=== PATIENT | male | born 1965 | race Caucasian/White ===

== ENCOUNTER 2021-01-26 20:28 | Inpatient (IN) | payer OTHER ==
[~2021-01-26] VITALS: Ht 170.2 cm; Wt 80.3 kg
--- NOTE | 2021-01-26 20:35 | NUR ---
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 PT IS AA/O X4, NO SIGN OF RESPIRATORY DISTRESS, CHEST PAIN WAS RELIEVED NOW, HOOK TO MONITOR ANS SPOX WILL CONT TO MONITOR
--- NOTE | 2021-01-26 20:40 | NUR ---
DR BARNETT AT BEDSIDE EKG IS DONE
[2021-01-26] MEDS ORDERED: NITROGLYCERIN PACKET 1 GM PACKET ONE (20:54)
[2021-01-26] MEDS ORDERED: NITROGLYCERIN PACKET 1 GM PACKET TD ONE (21:00)
[2021-01-26] MEDS ORDERED: ASPIRIN 81 MG TAB.CHEW PO ONE (21:00)
--- NOTE | 2021-01-26 21:05 | NUR ---
LAB AT BEDSIDE, BLOOD DRAW DONE
--- NOTE | 2021-01-26 21:10 | NUR ---
COVID ANTIGEN TEST AND MRSA DONE, SPECIMEN SEND TO THE LAB
[2021-01-26 21:27] LABS: BASOPHILS # (AUTO) 0.1 /CMM (0.0-0.2); BASOPHILS % (AUTO) 0.7 % (0.0-2.0); EOSINOPHILS % (AUTO) 3.2 % (0.0-6.0); HEMATOCRIT 47 % (39-51); HEMOGLOBIN 15.8 g/dL (13.5-17.5); LYMPHOCYTES # (AUTO) 2.2 /CMM (0.8-4.8); MEAN CORPUSCULAR HGB CONC 34 g/dl (31.0-36.0); MEAN CORPUSCULAR VOLUME 91 fL (80-96); MONOCYTES # (AUTO) 0.8 /CMM (0.1-1.30); MONOCYTES % (AUTO) 7.8 % (2.0-12.0); NEUTROPHILS # (AUTO) 6.7 /CMM (1.8-8.9); NEUTROPHILS % (AUTO) 66.3 % (43.0-81.0); PLATELET COUNT (AUTO) 249 /CMM (150-450); RED BLOOD CELL COUNT(AUTO) 5.12 MIL/uL (4.5-6.0); WHITE BLOOD COUNT (AUTO) 10.1 K/uL (4.3-11.0)
[2021-01-26] MEDS ORDERED: ENOXAPARIN SODIUM 80 MG/0.8 ML DISP.SYRIN SQ ONE ×2 (21:30→21:39)
[2021-01-26 21:38] LABS: CALCIUM, SERUM 9.2 mg/dL (8.5-10.1); CREATININE 1.4 mg/dL (0.6-1.3)
--- NOTE | 2021-01-26 22:05 | NUR ---
ICU 259
--- NOTE | 2021-01-26 22:25 | NUR ---
REPORT GIVEN TO CECILIA KRUSE FOR KONSTANTIN
[2021-01-26] MEDS ORDERED: ACETAMINOPHEN 325 MG TABLET PO PRN (23:00)
[2021-01-26] MEDS ORDERED: HYDROCODONE/APAP 5/325MG TABLET PO PRN (23:00)
[2021-01-26] MEDS ORDERED: MAGNESIUM HYDROXIDE 30 ML UDC PO PRN (23:00)
[2021-01-26] MEDS ORDERED: ZOLPIDEM TARTRATE 5 MG TABLET PO PRN (23:00)
[2021-01-26] MEDS ORDERED: MAG HYDROX/AL HYDROX/SIMETH 30 ML UDC PO PRN (23:00)
[2021-01-26] MEDS ORDERED: ONDANSETRON HCL/PF 4 MG/2 ML VIAL IVP PRN (23:00)
[2021-01-26] MEDS ORDERED: Z GUARD REMEDY 2 OZ OINT TP PRN (23:00)
[2021-01-26] MEDS ORDERED: ATORVASTATIN 10 MG TABLET PO SCH (23:00)
--- NOTE | 2021-01-26 23:00 | NUR ---
TRANSFER PT TO ROOM 259 VIA ACLS PROTOCOL BELONGINGS WITH THE PT, PT IS A/O X4 NO SOB NOTED DENIES ANY CHEST PAIN AT THE MOMENT RECEIVING NURSE AT BEDSIDE
[2021-01-26 23:15] VITALS: BP 108/66
[2021-01-26 23:30] VITALS: BP 102/57
[2021-01-26] MEDS: METOPROLOL TARTRATE 25 MG TABLET PO SCH (23:30)
[2021-01-27] VITALS (48 sets, daily range): BP systolic 81–121; BP diastolic 35–74
--- NOTE | 2021-01-27 00:30 | NUR ---
RN NOTES 2304 - ADMITTED A 55Y/O MALE AOX4 VERBALLY RESPONSIVE.. ON ROOM AIR SATURATION 98%. AFEBRILE. NO ACUTE RESPIRATORY DISTRESS. DENIES CHEST PAIN AT THIS TIME. PLACED ON MONITOR REVEALS SR. SKIN IS INTACT. SINUS RHYTHM ON MONITOR. IV SITE ON LAC G 18 AND RH G 20 INTACT AND PATENT. INSTRUCTED TO TO USE CARISA LIGHT FOR ASSISTANCE. KEPT PT CLEAN AND DRY. BED LOCKED AND SECURED WILL CONTINUE T O MONITOR.
[2021-01-27 04:22] LABS: BASOPHILS # (AUTO) 0.1 /CMM (0.0-0.2); BASOPHILS % (AUTO) 0.8 % (0.0-2.0); EOSINOPHILS % (AUTO) 3.4 % (0.0-6.0); HEMATOCRIT 45 % (39-51); LYMPHOCYTES # (AUTO) 3.7 /CMM (0.8-4.8); LYMPHOCYTES % (AUTO) 32.7 % (20.0-44.0); MEAN CORPUSCULAR HGB CONC 34 g/dl (31.0-36.0); MEAN CORPUSCULAR VOLUME 90 fL (80-96); MONOCYTES % (AUTO) 8.7 % (2.0-12.0); NEUTROPHILS # (AUTO) 6.2 /CMM (1.8-8.9); NEUTROPHILS % (AUTO) 54.4 % (43.0-81.0); PLATELET COUNT (AUTO) 231 /CMM (150-450); RED BLOOD CELL COUNT(AUTO) 4.94 MIL/uL (4.5-6.0); WHITE BLOOD COUNT (AUTO) 11.3 K/uL (4.3-11.0)
[2021-01-27 04:37] LABS: CALCIUM, SERUM 8.9 mg/dL (8.5-10.1); PHOSPHORUS 4.3 mg/dL (2.5-4.9); POTASSIUM 3.9 mmol/L (3.5-5.1)
--- NOTE | 2021-01-27 07:00 | NUR ---
RN NOTES PATIENT ASLEEP WELL WITHOUT SOB OR CHEST PAIN. AFEBRILE. VSS. OFFERED TO HAVE O2 BUT PATIENT REFUSED NO SIGNIFICANT CHANGES THROUGHOUT THE SHIFT. REPORTED BY LAB TROPONIN 13.457 ALKA TEAM ASSEMBLER AWARE WITH ORDER EKG, AND CONTINUE TO MONITOR.
--- NOTE | 2021-01-27 07:45 | NUR ---
RN OPENING NOTES RECEIVED PT A&0X4, ON ROOM AIR SATURATING 98%, APPEARS COMFORTABLE AND NOT IN ANY DISTRESS, NO COMPLAINS OF CHEST PAIN OR PAIN ELSEWHERE IN THE BODY AT THIS TIME. PERIPHERAL LINES INTACT WITH NO DRIPS. SAFETY CHECKS IN PLACE. WILL CONTINUE TO MONITOR.
[2021-01-27] MEDS ORDERED: ASPIRIN 81 MG TAB.CHEW PO SCH (09:00)
[2021-01-27] MEDS: METOPROLOL TARTRATE 25 MG TABLET PO SCH ×2 (09:19→21:00)
--- NOTE | 2021-01-27 09:45 | NUR ---
RN NOTE PATIENT ALLOWED TO EAT AND DRINK PER DR HESTER.
[2021-01-27] MEDS: ENOXAPARIN SODIUM 80 MG/0.8 ML DISP.SYRIN SQ SCH ×2 (10:26→21:28)
--- NOTE | 2021-01-27 12:00 | NUR ---
RN NOTE PATIENT NOT EATING OR DRINKING FOR POSSIBLE ANGIO TODAY PER DR HESTER.
[2021-01-27] MEDS ORDERED: NITROGLYCERIN 0.4 MG/TAB BOTTLE SL PRN (12:30)
[2021-01-27] MEDS ORDERED: MORPHINE SULFATE INJ 2 MG/ML DISP.SYRIN IV PRN (12:30)
[2021-01-27] MEDS: ATORVASTATIN 40 MG TABLET PO SCH ×2 (14:30→21:23)
--- NOTE | 2021-01-27 15:00 | NUR ---
RN NOTE LEFT HEART CATH POSSIBLE PCI ON MONDAY PER DR SANTO. MAY HAVE CARDIAC DIET.
--- NOTE | 2021-01-27 15:02 | NUR ---
RN NOTE ATORVASTATIN 80MG PRESCRIBED FOR 1430 AND 2200. PER PHARMACY, DISREGARD 1430 DOSE, AND JUST ADMINISTER THE QHS DOSE.
--- NOTE | 2021-01-27 18:28 | NUR ---
RN CLOSING NOTES PATIENT'S CONDITION REMAINS UNCHANGED. NO COMPLAINS OF PAIN IN THE CHEST OR ELSEWHERE IN THE BODY. SR 63 ON THE TELE MONITOR AT THIS TIME. EMPTIED 1050 MLS IN THE URINAL THIS SHIFT. PAYING VISIT OF THIS WRITING. SAFETY CHECKS IN PLACE. WILL ENDORSE TO NIGHT RN FOR CONTINUITY OF CARE.
--- NOTE | 2021-01-27 19:15 | NUR ---
RN OPENING NOTE REC'D PT IN BED. A/O 4. PT IS COOPERATIVE. AT THIS TIME, PT IS ON ROOM AIR, TOLERATING WELL. NO SOB OR RESP DISTRESS NOTED. PT O2 SATURATION IS 96% ON CARDIAC MONITORING, PRESENTS WITH NORMAL SINUS WITH HEART RATE 67. IV SITE LAC AND RIGHT HAND FLUSHED. PT USES URINAL. SAFETY MEASURES IN PLACE. HOB ELEVATED. SIDE RAILS UP X 2, BED LOCKED IN LOWEST POSITION WITH BED ALARM ON. CALL LIGHT WITHIN REACH. WILL CONT TO MONITOR THROUGHOUT SHIFT.
--- NOTE | 2021-01-27 21:40 | NUR ---
RN NOTE NON ADMIN OF METOPROLOL. BP 92/61 HR 62. NOTIFIED KATE RUCKER WEB SOFTWARE ENGINEER, ORDERS TO HOLD CARRIED OUT. INFORMED PT OF SITUATION. COOPERATIVE.
--- NOTE | 2021-01-27 23:52 | NUR ---
RN NOTE PT ASLEEP, AWAKENS EASILY. PT DENIES PAIN AT THIS TIME. ALL NEEDS ATTENDED. WILL CONT TO MONITOR.
[2021-01-28] VITALS (45 sets, daily range): BP systolic 82–133; BP diastolic 47–83
[2021-01-28 04:14] LABS: BASOPHILS # (AUTO) 0.1 /CMM (0.0-0.2); BASOPHILS % (AUTO) 0.8 % (0.0-2.0); EOSINOPHILS % (AUTO) 3.4 % (0.0-6.0); HEMATOCRIT 46 % (39-51); HEMOGLOBIN 15.3 g/dL (13.5-17.5); LYMPHOCYTES # (AUTO) 3.6 /CMM (0.8-4.8); LYMPHOCYTES % (AUTO) 32.2 % (20.0-44.0); MEAN CORPUSCULAR HGB CONC 33 g/dl (31.0-36.0); MEAN CORPUSCULAR VOLUME 91 fL (80-96); MONOCYTES % (AUTO) 9.3 % (2.0-12.0); NEUTROPHILS # (AUTO) 6.1 /CMM (1.8-8.9); NEUTROPHILS % (AUTO) 54.3 % (43.0-81.0); PLATELET COUNT (AUTO) 238 /CMM (150-450); RED BLOOD CELL COUNT(AUTO) 5.08 MIL/uL (4.5-6.0); WHITE BLOOD COUNT (AUTO) 11.2 K/uL (4.3-11.0)
[2021-01-28 04:39] LABS: ALBUMIN 3.3 g/dL (3.4-5.0); BILIRUBIN,TOTAL 0.5 mg/dL (0.2-1.0); CALCIUM, SERUM 8.8 mg/dL (8.5-10.1); CREATININE 1.1 mg/dL (0.6-1.3); MAGNESIUM 2.1 mg/dL (1.8-2.4); PHOSPHORUS 4.7 mg/dL (2.5-4.9); POTASSIUM 4.1 mmol/L (3.5-5.1); TOTAL PROTEIN, SERUM 6.9 g/dL (6.4-8.2)
[2021-01-28 04:42] LABS: CREATININE, URINE 109.1 MG/DL (30.0-125.0); URINE TOTAL PROTEIN 6.4 mg/dL (0-11.9)
[2021-01-28 04:44] LABS: COLOR,URINE YELLOW (YELLOW)
[2021-01-28 04:45] LABS: BILIRUBIN,URINE NEGATIVE (NEGATIVE); PROTEIN,URINE NEGATIVE (NEGATIVE); UGLUCOSE NEGATIVE (NEGATIVE)
--- NOTE | 2021-01-28 04:45 | NUR ---
RN NOTE URINE COLLECTED AND SENT TO LAB.
[2021-01-28 04:46] LABS: LEUKOCYTE ESTERASE ,URINE NEGATIVE (NEGATIVE); NITRITE, URINE NEGATIVE (NEGATIVE); UROBILINOGEN,URINE 0.2 EU/dL (0.2)
[2021-01-28 04:48] LABS: BACTERIA,URINE None seen /HPF (None Seen); EOSINOPHIL,URINE None Seen; RBC,URINE 0-2 /HPF (0-2); SQUAMOUS EPITHELIAL CELL,UR Few /HPF (None Seen); WBC,URINE 0-2 /HPF (0-3)
--- NOTE | 2021-01-28 06:44 | NUR ---
RN CLOSING NOTE PT REMAINS IN BED, RESTING, EASILY AWAKENS. ON ROOM AIR. TOLERATING WELL. NO SOB NO DISTRESS NOTED. O2 SATURATION 96%. PT REMAINS WITH NSR WITH HEART RATE OF 60. NO SIGNIFICANT CHANGE IN PT CONDITION. PT DENIES PAIN. DENIES CHEST PAIN. SAFETY MEASURES IN PLACE. HOB ELEVATED. BED LOCKED IN LOWEST POSITION. SIDE RAILS UP X3. BED ALARM ON. CALL LIGHT WITHIN REACH. WILL CONT TO MONITOR UNTIL END OF SHIFT AND WILL ENDORSE TO DAY SHIFT NURSE FOR CONTINUATION OF CARE.
--- NOTE | 2021-01-28 07:20 | NUR ---
SOFTWARE IMPLEMENTATION PROJECT MANAGER NOTES RECEIVED PATIENT IN BED RESTING COMFORTABLY IN MODERATE HIGH BACK REST, A/O X4, EASILY AWAKENS. ON ROOM AIR. TOLERATING WELL. NO SOB NO DISTRESS NOTED AT THIS TIME. DENIES CHEST PAIN. O2 SATURATION 98%. ON ARCHITECTURAL TECHNICIAN WITH CURRENT READING OF SR WITH HEART RATE OF 62. SAFETY MEASURES IN PLACE. BED LOCKED IN LOWEST POSITION. SIDE RAILS UP X2. BED ALARM ON. CALL LIGHT WITHIN REACH. WILL CONT TO MONITOR.
[2021-01-28] MEDS: ASPIRIN 81 MG TAB.CHEW PO SCH (08:15)
[2021-01-28] MEDS: METOPROLOL TARTRATE 25 MG TABLET PO SCH ×2 (08:15→21:39)
--- NOTE | 2021-01-28 10:00 | NUR ---
CV RN NOTES SEEN AND EXAMINED BY DEIDRA NAILS AT THIS TIME, PATIENT VSS. WILL CONTINUE TO MONITOR.
[2021-01-28] MEDS: ENOXAPARIN SODIUM 80 MG/0.8 ML DISP.SYRIN SQ SCH ×2 (10:06→21:40)
--- NOTE | 2021-01-28 18:45 | NUR ---
COPYRIGHT EXPERT NOTES PATIENT IN BED RESTING COMFORTABLY IN MODERATE HIGH BACK REST, FAMILY AT BEDSIDE, A/O X4, ON ROOM AIR. TOLERATING WELL. NO SOB/DISTRESS NOTED THROUGHOUT THE SHIFT. DENIES CHEST PAIN. ON HADOOP ARCHITECT WITH CURRENT READING OF SR WITH HEART RATE OF 60'S. SAFETY MEASURES IN PLACE. BED LOCKED IN LOWEST POSITION. SIDE RAILS UP X2. BED ALARM ON. CALL LIGHT WITHIN REACH. WILL ENDORSE TO ELEMENTARY SCHOOL TEACHER NURSE FOR KONSTANTIN.
--- NOTE | 2021-01-28 20:00 | NUR ---
Received patient A/OX4 SR per tele monitoring.Breathing even and unlabored. On RA saturation wnl.Patient denies chest pain or sob.Patient for Heart Catheterization in AM. NPO post MN instructed verbalized understanding.Urinating per urinal.Saline lock LAC and RH intact and patent.Continue monitoring.
[2021-01-28] MEDS: ATORVASTATIN 40 MG TABLET PO SCH (21:38)
[2021-01-29] VITALS (27 sets, daily range): BP systolic 78–129; BP diastolic 38–79
--- NOTE | 2021-01-29 | NUR ---
Patient resting reminded he is NPO from this time till further orders.VS stable. Denies chest pain or sob.
--- NOTE | 2021-01-29 05:45 | NUR ---
Patient ambulated to restroom reported had bm and voided.
--- NOTE | 2021-01-29 06:00 | NUR ---
Patient in bed.AM care done complete lines changed.AM labs drawn.Pre-op check list initiated.Consent for Heart Cath obtained.Remains chest pain free denies sob , nausea or vomiting.Vs remains stable.Kept comfortable.
[2021-01-29] MEDS ORDERED: FENTANYL PF 100MCG/2ML AMPUL ONE (06:05)
[2021-01-29] MEDS ORDERED: IODIXANOL 150 ML IV ONE (06:05)
[2021-01-29] MEDS ORDERED: MIDAZOLAM HCL 2 MG/2ML VIAL ONE (06:06)
[2021-01-29] MEDS ORDERED: NITROGLYCERIN ICAR 1,000 MCG/10 ML VIAL ICAR ONE (06:06)
[2021-01-29] MEDS ORDERED: LIDOCAINE HCL/MPF 1% 30 ML VIAL IJ ONE (06:06)
[2021-01-29] MEDS ORDERED: IV SET PRIMARY PUMP SET 1 EA INFUS.SET MC ONE (06:07)
[2021-01-29] MEDS ORDERED: IV NS 0.9% 1,000 ML ONE (06:07)
[2021-01-29 06:38] LABS: ALBUMIN 3.4 g/dL (3.4-5.0); BILIRUBIN,TOTAL 0.6 mg/dL (0.2-1.0); CREATININE 1.2 mg/dL (0.6-1.3); POTASSIUM 4.4 mmol/L (3.5-5.1); TOTAL PROTEIN, SERUM 7.1 g/dL (6.4-8.2)
[2021-01-29 07:05] LABS: BASOPHILS # (AUTO) 0.1 /CMM (0.0-0.2); BASOPHILS % (AUTO) 1.1 % (0.0-2.0); EOSINOPHILS % (AUTO) 3.4 % (0.0-6.0); HEMATOCRIT 48 % (39-51); HEMOGLOBIN 15.8 g/dL (13.5-17.5); LYMPHOCYTES % (AUTO) 37.6 % (20.0-44.0); MEAN CORPUSCULAR HGB CONC 33 g/dl (31.0-36.0); MEAN CORPUSCULAR VOLUME 91 fL (80-96); MONOCYTES % (AUTO) 9.9 % (2.0-12.0); PLATELET COUNT (AUTO) 254 /CMM (150-450); RED BLOOD CELL COUNT(AUTO) 5.25 MIL/uL (4.5-6.0); WHITE BLOOD COUNT (AUTO) 10.5 K/uL (4.3-11.0)
--- NOTE | 2021-01-29 07:15 | NUR ---
RN NOTES PT STILL IN MANAGER PHARMACEUTICAL
--- NOTE | 2021-01-29 07:20 | NUR ---
At 0625 Patient left to to phlebotomist lab assistant via bed in stable condition.Report given to day shift for KONSTANTIN.
--- NOTE | 2021-01-29 08:00 | NUR ---
RN NOTES RECEIVED PT FORM SCREEN MAKER. A/OX4. ON ROOM AIR. DENIES ANY PAIN. NO RESPIRATORY DISTRESS NOTED. IV LINES IN PLACE. RIGHT WRIST TR BAND NOTED. NO CIRCULATORY IMPAIRMENT NOTED. PALPABLE RADIAL PULSE NOTED. PT CONNECTED BACK TO MONITOR. PT COMFORTABLE. CALL LIGHT WITHIN REACH. WILL CLOSELY MONITOR
[2021-01-29] MEDS ORDERED: METO25TA20 PO (08:14)
[2021-01-29] MEDS ORDERED: ATOR40TA PO (08:14)
[2021-01-29] MEDS ORDERED: ASPI-1169 PO (08:14)
[2021-01-29] MEDS ORDERED: Nitroglycerin SL (08:14)
[2021-01-29] MEDS ORDERED: RXENO XX (08:14)
[2021-01-29] MEDS ORDERED: Morphine Sulfate Inj IV (08:14)
--- NOTE | 2021-01-29 08:45 | NUR ---
RN NOTES [address] HESTER. SP CARDIAC CATH, TR BAND IN PLACE ON RIGHT WRIST. PER DR SANTO, SURGERY CONSULT FOR CONSIDERATION OF INPATEINT CABG. PT FOR POSSIBLE TRANSFER TO HIGHER LEVEL OF CARE. [address] MEHTA. DISCUSS PLAN OF CARE WITH SISTER AT BEDSIDE. ISAURO (COLD STORAGE WORKER) AWARE OF TRANSFER
[2021-01-29] MEDS: METOPROLOL TARTRATE 25 MG TABLET PO SCH ×3 (09:00→21:39)
[2021-01-29] MEDS: ENOXAPARIN SODIUM 80 MG/0.8 ML DISP.SYRIN SQ SCH ×2 (09:05→22:00)
[2021-01-29] MEDS: ASPIRIN 81 MG TAB.CHEW PO SCH (09:05)
--- NOTE | 2021-01-29 18:54 | NUR ---
RN CLOSING NOTES NO SIGNIFICANT CHANGE NOTED. REMAINS A/OX4. DENIES ANY PAIN. NO SOB NOTED. KEPT COMFORTABLE. STILL WAITING FOR TRANSFER UPDATE. WILL ENDORSE FOR CONTINUITY OF CARE
--- NOTE | 2021-01-29 19:45 | NUR ---
ICU/ANESTHETIST RECEIVED REPORT FROM DAY NURSE. SEE FLOWSHEET FOR ASSESSMENT. NO IV'S. THE TURNS SELF WITHOUT ASST. PT IS INDEPENDENT IN ADL'S. CALL LIGHT WITHIN REACH. PT CURRENTLY DENIES ANY PAIN.
--- NOTE | 2021-01-29 20:05 | NUR ---
ICU/ADHESIVE BANDAGE MAKING OPERATOR RIGHT WRIST DRESSING IS CLEAN, DRY. GOOD PULSE IS FELT. WILL CONTINUE TO MONITOR THIS PT.
[2021-01-29] MEDS: ATORVASTATIN 40 MG TABLET PO SCH (21:39)
--- NOTE | 2021-01-29 21:54 | NUR ---
ICU/GROUP CHIEF OPERATOR 2100 DOSE OF METOPROLOL 25MG WAS HELD DUE TO LOW BLOOD PRESSURE AND LOW HEART RATE. ALSO CONTACTED THE LEADERSHIP PROGRAM INTERNSHIP ALKA TO ASK IF OK TO GIVE THE 80MG OF LOVENOX, WHICH SHE SAID YES. WILL MONITOR THIS PT AND HIS BP.
[2021-01-30] VITALS (23 sets, daily range): BP systolic 104–134; BP diastolic 42–96
--- NOTE | 2021-01-30 00:30 | NUR ---
ICU/RECLAMATION ENGINEER PT AT THIS TIME APPEARS TO BE RESTING COMFORTABLY, NO ACUTE SIGNS OF DISTRESS, CALL LIGHT IS WITHIN REACH. WILL CONTINUE TO MONITOR THIS PT.
--- NOTE | 2021-01-30 06:17 | NUR ---
ICU/TUBE BUFFER PT AT THIS TIME APPEARS TO BE RESTING COMFORTABLY, NO ACUTE SIGNS OF DISTRESS, CALL LIGHT IS WITHIN REACH. WILL CONTINUE TO MONITOR THIS PT.
--- NOTE | 2021-01-30 07:30 | NUR ---
CITY MAGISTRATE OPENING NOTE RECEIVED REPORT FROM PM NURSE .PATIENT IN BED.ALERT ORIENTEDX4.NO SOB NO DISTRESS NOTED.IN ROOM AIR.NO C/O CHEST PAIN.VITAL SIGNS IS STABLE ,BRADYCARDIC HR 55 IN MONITOR .IV LINE IS INTACT AND PATENT.SAFETY MEASURES IN PLACE.PATIENT IS ABLE TO MAKE NEEDS KNOWN.CALL LIGHT IN REACH.AWAITING PATIENT TRANSFER .WILL CONTINUE TO MONITOR.
[2021-01-30] MEDS: ASPIRIN 81 MG TAB.CHEW PO SCH (08:32)
--- NOTE | 2021-01-30 09:01 | NUR ---
OFFICE MANAGER NOTE RECEIVED CALL FROM [facility] .SPOKE TO MIGUEL.PRIMARY CARE PHYSICIAN NUMBER GIVEN TO CONTACT.TECHNICAL OPERATOR AMINTA MADE AWARE.WILL UPDATE ABOUT TRANSFER.
[2021-01-30] MEDS: METOPROLOL TARTRATE 25 MG TABLET PO SCH (09:27)
[2021-01-30] MEDS: ENOXAPARIN SODIUM 80 MG/0.8 ML DISP.SYRIN SQ SCH (09:48)
--- NOTE | 2021-01-30 13:57 | NUR ---
DOVETAILER NOTE SEEN BY ,AWAITING TRANSFER .WILL CONTINUE TO MONITOR.
--- NOTE | 2021-01-30 15:29 | NUR ---
RACK LOADER NOTE PATIENT NOT ACCEPTED IN ANY HOSPITAL.FAMILY DENIED [facility] PER GROUP COUNSELOR TEGAN SPOKE TO CHARGE NURSE.FAMILY PLANNING AMA.GROUP COUNSELOR TALKED TO SISTER MELISSA OVER PHONE SHE TOLD PATIENT WILL BE LEAVING AMA.WILL CONTINUE TO MONITOR.
--- NOTE | 2021-01-30 16:00 | NUR ---
CONTENT ADMINISTRATOR NOTE AT PATIENT BEDSIDE WITH HEIDI FOR SIGN THE PAPER WORK FOR AMA PATIENT FAMILY REQUEST.PATIENT ABLE TO UNDERSTAND URDU ,EXPLAINED ABOUT AMA.BUT HE REQUESTED A MINUTE TO TALK TO HIS SISTER.I SPOKE TO MELISSA SISTER SHE TOLD THAT HE NEED SOME ONE TO TRANSLATE ABOUT AMA FORM TO SIGN.I TOLD PATIENT THAT ONE OF OUR NURSE AT PATIENT BED SIDE SHE WILL HELP FOR TRANSLATION.WHILE I WAS WAITING I WENT BACK TO PATIENT ROOM HE SAID HE SIGNED THE PAPER WORK HE DONT NEED ANY TRANSLATION.HE SIGNED THE BELONGING LIST. WHILE MOVING FORWARD TO DISCHARGE PAPER WORK I EXPLAINED ABOUT MEDICATION LIST WAS GIVEN IN THE HOSPITAL AND WAS REQUESTING FOR PRESCRIPTION OF THE MEDICATIONS.I EXPLAINED TO PATIENT AND FAMILY THAT WHILE GOING AMA DOCTORS WONT BE ABLE TO GIVE PRESCRIPTIONS.HAILY RN HELPED ME IN EXPLAINING EVERYTHING IN [place] AND ANSWERED ALL QUESTIONS.PATIENT TOLD THAT PATIENT NEED COUPLE OF MINUTE TO THINK ABOUT AMA.
--- NOTE | 2021-01-30 16:30 | NUR ---
OPTICAL LATHE OPERATOR NOTE PLANNING AND ANALYSIS MANAGER MADE AWARE ABOUT THE SITUATION ,PATIENT AND FAMILY DOES NOT WANT TO LEAVE AMA.PLANNING AND ANALYSIS MANAGER AMINTA AT BEDSIDE .MADE CALL TO SISTER MELISSA OVER SPEAKER PHONE SPOKE TO PATIENT AND DECIDED THAT NOT LEAVING AMA .AWAITING FOR TRANSFER.PLANNING AND ANALYSIS MANAGER MADE AWARE THAT INSURANCE WILL APPROVE FOR [facility].PATIENT AND FAMILY AGREED FOR [facility] AWAITING APPROVAL FROM HOSPITAL.
--- NOTE | 2021-01-30 18:00 | NUR ---
MACHINIST BENCH NOTE PATIENT HEIDI AT BEDSIDE CALL TO THE ROOM TOLD THAT PATIENT IS LEAVING AMA.SISTER MELISSA ON THE SPEAKER PHONE .TOLD CHARGE NURSE AND ME MADE AWARE THAT PATIENT LEAVING AMA.WENT TO THE ROOM SIGNED ALL THE PAPER WORK.GAVE ALL MEDICAL RECORDS AND INSTRUCTIONS .PATIENT AND VERBALIZED UNDERSTANDING.REMOVED IV .PRESSURE DRESSING APPLIED.VITAL SIGNS STABLE.
--- NOTE | 2021-01-30 18:15 | NUR ---
BOOM MAN AMA NOTE PATIENT LEFT AMA FROM [facility] IN STABLE CONDITION.NO SOB NO DISTRESS NOTED.VITAL SIGNS STABLE.LEFT WITH HEIDI.ESCORTED PATIENT AND TO THE CAR .TOOK ALL BELONGING AND PAPER WORK.
[2021-01-30] MEDS ORDERED: ENOXAPARIN SODIUM 80 MG/0.8 ML DISP.SYRIN SQ SCH (22:00)
== END 2021-01-30 18:13 | disposition left against medical advice (07) | DRG 190 ==
LOC: ER 20:33 → ICU 22:07
PROVIDERS: ADMIT Nurse Practitioner Acute Care
PROC: 4A023N7 Measurement of Cardiac Sampling and Pressure, Left Heart, Percutaneous Approach (ICD-10-PCS; principal; 2021-01-29)
PROC: B211YZZ Fluoroscopy of Multiple Coronary Arteries using Other Contrast (ICD-10-PCS; 2021-01-29)
PROC: B44FZZZ Ultrasonography of Right Lower Extremity Arteries (ICD-10-PCS; 2021-01-29)
DX: I21.4 Non-ST elevation (NSTEMI) myocardial infarction (principal); N17.0 Acute kidney failure with tubular necrosis; I10 Essential (primary) hypertension; F17.210 Nicotine dependence, cigarettes, uncomplicated; I25.10 Atherosclerotic heart disease of native coronary artery without angina pectoris
CPT/HCPCS: 36415; 71045-TC; 80048-TC; 80053-TC; 80061-TC; 81001; 82570-TC; 83735-TC; 84100-TC; 84155-TC; 84300-TC; 84484-TC; 85025-TC; 85610-TC; 85730-TC; 87081-TC; 93307-TC; 93880-TC; C9803; G0378; G0500; J1644; J1650; J2250; J3010; J3490; Q9967